=== PATIENT | male | born 2000 | race Asian ===

== ENCOUNTER 2024-09-09 05:12 | Emergency (ER) | payer BC ==
[~2024-09-09] VITALS: Ht 177.8 cm; Wt 68.0 kg
[2024-09-09 05:17] VITALS: TEMP 98.3; O2SAT 100
[2024-09-09] MEDS ORDERED: ONDANSETRON HCL 4MG/2ML INJ IV STA (05:32)
[2024-09-09] MEDS ORDERED: FAMOTIDINE 20MG/2ML VIAL IV STA (05:32)
[2024-09-09 05:46] LABS: BASOPHILS % 0.7 % (0.0-2.0); EOSINOPHILS % 1.7 % (0.0-5.0); HEMATOCRIT. 46.6 % (42.0-52.0); HEMOGLOBIN. 15.5 g/dL (14.0-18.0); LYMPHOCYTES % 21.3 % (20.0-50.0); MEAN CORPUSCULAR HEMOGLOBIN 29.7 pg (28.0-32.0); MEAN CORPUSCULAR HGB CONC 33.3 g/dL (31.0-37.0); MEAN CORPUSCULAR VOLUME 89.2 fL (80.0-94.0); MEAN PLATELET VOLUME 8.5 fl (7.4-10.4); NEUTROPHILS % 70.3 % (40.0-76.0); PLATELET 209 x1000/uL (130-400); RED BLOOD CELL COUNT 5.23 mill/uL (4.7-6.1); RED CELL DISTRIBUTION WIDTH 13.1 % (11.6-14.6); WHITE BLOOD COUNT 8.1 x1000/uL (4.5-11.0)
[2024-09-09 05:56] LABS: CARBON DIOXIDE 30 mEq/L (21-32); CHLORIDE 108 mEq/L (98-107); POTASSIUM 4.4 mEq/L (3.5-5.1); SODIUM 142 mEq/L (136-145)
[2024-09-09 05:57] LABS: CALCIUM 10.3 mg/dL (8.7-10.4)
[2024-09-09] MEDS: FAMOTIDINE 20MG TABLET PO ONE (05:59)
[2024-09-09] MEDS: MAGNESIUM/ALUMINUM HYDROXIDE/SIMETHICONE 30ML UDC PO STA (05:59)
[2024-09-09] MEDS: ONDANSETRON HCL 4MG TABLET PO ONE (05:59)
[2024-09-09 06:01] LABS: GLUCOSE 119 mg/dL (70-105)
[2024-09-09 06:02] LABS: PROTHROMBIN TIME 11.4 sec (9.6-11.0); UREA NITROGEN BLOOD 18 mg/dL (9-23)
[2024-09-09 06:03] LABS: ALANINE AMINOTRANSFERASE 28 IU/L (10-49); ALBUMIN 4.8 g/dL (3.2-4.8); ASPARTATE AMINOTRANSFERASE 25 IU/L (<34); BILIRUBIN DIRECT 0.1 mg/dL (<=3.0)
[2024-09-09 06:04] VITALS: BP 112/42; PULSE 55; RESP 18; O2SAT 99
[2024-09-09 06:04] LABS: BILIRUBIN TOTAL 0.7 mg/dL (0.1-1.0); PROTEIN TOTAL 7.7 g/dL (6.0-8.3)
[2024-09-09] MEDS ORDERED: FAMO-135 MT (06:57)
[2024-09-09 08:10] LABS: CLARITY URINE CLOUDY (CLEAR); COLOR URINE YELLOW (YELLOW); GLUCOSE URINE NEGATIVE (NEGATIVE); KETONES URINE NEGATIVE (NEGATIVE); LEUKOCYTE ESTERASE URINE NEGATIVE (NEGATIVE); NITRITE URINE NEGATIVE (NEGATIVE); OCCULT BLOOD URINE NEGATIVE (NEGATIVE); PH URINE 6.5 (4.5-8.0); PROTEIN URINE 1+ (NEGATIVE); SPECIFIC GRAVITY URINE 1.021 (1.005-1.030); UROBILINOGEN URINE 0.2 E.U./dL (0.2-1.0)
[2024-09-09 08:41] LABS: AMORPHOUS SEDIMENT URINE 1+ /lpf; SQUAMOUS EPITHELIAL CELL URINE RARE /lpf (RARE/1+)
[2024-09-09 08:42] LABS: BACTERIA URINE 1+; CALCIUM OXALATE CRYSTALS URINE 1+ /lpf
[2024-09-09 08:43] LABS: RBC URINE NONE SEEN /hpf (0-2); WBC URINE 0-2 /hpf (0-2)
== END 2024-09-09 07:05 | disposition home or self-care (01) ==
LOC: ER 05:35
DX: R10.13 Epigastric pain (principal); R11.10 Vomiting, unspecified
CPT/HCPCS: 99284; 80076; 80048; 81003; 83690; 85025; 85610; 36415; Q0162